=== PATIENT | female | born 1955 | race Caucasian/White ===

== ENCOUNTER 2021-12-31 05:34 | Day surgery (SDC) | payer OTHER ==
[~2021-12-31] VITALS: Ht 170 cm; Wt 103.0 kg
[~2021-12-31 05:34] MED LIST: BACTRIM DS TAB1 EACH PO; CITALOPRAM HBR20 MG PO; EXCEDRIN EXTRA1 EACH PO; LISINOPRIL20 MG PO; METFORMIN HCL500 M3 PO; OMEPRAZOLE40 MG PO; SIMVASTATIN40 MG PO; VENTOLIN (2.5 MG/3 M INH
[2022-01-01 03:44] LABS: BILIRUBIN NEGATIVE (NEGATIVE); BLOOD NEGATIVE Ery/uL (NEGATIVE); CLARITY CLEAR (CLEAR); COLOR YELLOW (YELLOW); GLUCOSE (U) 1+ mg/dL (NORMAL); LEUKOCYTES NEGATIVE Leu/uL (NEGATIVE); NITRITE POSITIVE (NEGATIVE); PROTEIN NEGATIVE (NEGATIVE); UROBILINOGEN 0.2 mg/dL (0.2-1.0)
[2022-01-01 03:54] LABS: BACTERIA TRACE; MUCOUS TRACE
[2022-01-01 06:35] LABS: BASOPHIL 0.3 % (0-2); EOSINOPHIL 0.4 % (0-7); HCT 30.4 % (37.0-47.0); HGB 9.8 g/dl (12.5-16.0); LYMPHOCYTE 13.4 % (15-48); MCH 29.6 pg (25.0-31.0); MCHC 32.2 g/dL (32.0-36.0); MCV 91.8 fL (78.0-100.0); MONOCYTE 10.9 % (0-12); MPV 10.9 fL (6.0-9.5); NEUTROPHIL 74.6 % (41-80); NRBC 0; PLT 191 K/uL (150-400); RBC 3.31 M/uL (4.20-5.40); RDW 12.9 % (11.5-14.0); WBC 7.9 K/uL (4.0-10.5)
[2022-01-01 06:55] LABS: BUN/CREAT RATIO (CALC) 26.3 RATIO; CREATININE 0.76 mg/dL (0.51-0.95); POTASSIUM 4.3 mmol/L (3.5-5.1)
--- NOTE | 2022-01-01 08:05 | NUR ---
PT WILL D/C HOME THIS DATE. SHE HAS A RW. [facility] TO DELIVER A 11/06. PT. REQUESTED [facility] FOR THERAPY.
[2022-01-01] MEDS ORDERED: XARELTO10 MG PO (09:06)
[2022-01-01] MEDS ORDERED: KEFLEX250 MG PO (09:06)
[2022-01-01] MEDS ORDERED: OXYCODONE-ACET1 EAC1 PO (09:06)
[2022-01-01] MEDS ORDERED: FEOSOL325 MG PO (09:06)
== END 2022-01-01 12:48 | disposition home health service (06) ==
LOC: FAS 05:34 → FMS 08:51 → FAS 11:00
PROVIDERS: Legal Medicine
DX: M17.11 Unilateral primary osteoarthritis, right knee (principal); M25.761 Osteophyte, right knee; M67.261 Synovial hypertrophy, not elsewhere classified, right lower leg; M89.8X6 Other specified disorders of bone, lower leg; I10 Essential (primary) hypertension; E11.9 Type 2 diabetes mellitus without complications; F17.200 Nicotine dependence, unspecified, uncomplicated; E78.5 Hyperlipidemia, unspecified; Z98.51 Tubal ligation status; Z90.49 Acquired absence of other specified parts of digestive tract; Z88.1 Allergy status to other antibiotic agents; Z88.5 Allergy status to narcotic agent
CPT/HCPCS: 36415; 73560; 80048; 81001; 82962; 85025; 86850; 86900; 86901; 87088; 94010; 94762; 97162; 97166; 97530-GP; C1713; C1776; J0171; J0697; J0735; J1100; J1885; J2250; J2405; J2704; J2795; J3010; J7120